=== PATIENT | female | born 1990 | race American Indian/Alaskan Native ===

== ENCOUNTER 2019-01-31 07:28 | Day surgery (SDC) | payer OTHER ==
[~2019-01-31] VITALS: Ht 162.6 cm; Wt 81.7 kg
--- NOTE | ~2019-01-31 | OR ---
[address] [address] [place] DATE OF OPERATION: 01/31/2019 SURGEON: Venkata Mota DO PREOPERATIVE DIAGNOSES: 1. Missed approximately 7 weeks. 2. Type 2 diabetes, poorly controlled. POSTOPERATIVE DIAGNOSES: 1. Missed approximately 7 weeks. 2. Type 2 diabetes, poorly controlled. PROCEDURE PERFORMED: Suction D and C. ASSISTANT FOREMAN: None. ANESTHESIA: MAC. ESTIMATED BLOOD LOSS: 250 mL. SPECIMEN: Products of conception. FINDINGS: Normal external genitalia with normal clitoris, urethral meatus, bilateral Sylvia's, and Bartholin glands. The cervix was slightly open, but no products of conception were noted proceeding from the cervical os. At the time of D and C, products of conception noted and suction tubing. The patient did have approximately 200 mL of blood loss with some initial uterine atony that improved with Cytotec rectally, methargen, tranexamic acid, and Pitocin. Hemostatic at the end the procedure and the uterus was involuted and firm. COMPLICATIONS: None. INDICATION: PATIENT NAME: SISSY ESCOBAR OPERATIVE REPORT DATE OF : 86 REPORT #: [id number] PHYSICIAN: VENKATA MOTA DO PCP: ANJELICA ALBERTO MD REPORT IS CONFIDENTIAL AND NOT TO BE RELEASED WITHOUT AUTHORIZATION [address] [address] [place] Ms. Escobar is a pleasant 28-year-old G5, P3-0-2-3, who presented to clinic with symptoms of missed AB. Quants decreased from 26 to approximately 23,000 and multiple ultrasounds showed an empty gestational sac with no viable intrauterine products. Past medical history is complicated by type 2 diabetes that is poorly controlled. Despite being on metformin and Lantus, her recent A1c was over 11. Dr. Ojeda from clinic called in and coordinated with me to treat this patient. I reviewed options for management of missed AB including expectant management, medical management, and surgical management. The patient strongly wishes to proceed with suction D and C. Risks, benefits, and alternatives were discussed in detail with the patient. The patient understands and wished to proceed with the procedure. DESCRIPTION OF PROCEDURE: The patient was taken to the operating room. A time-out was performed to confirm correct patient and correct procedure. MAC anesthesia was adequately established. The patient was then prepped and draped in dorsal lithotomy position with feet in Yellofin stirrups. ICPs were on and running, and the patient received doxycycline 200 mg preoperatively. A weighted speculum was placed in the vagina and the anterior lip of the cervix was grasped with an Allis clamp. The cervix was noted to be somewhat open and the cervix was easily and gently dilated to a #11 using the guard dilators. A #11 curved curette was then selected and advanced very gently to the fundus. Once fundal position was confirmed, the suction machine was activated and suction was noted to increase into the green zone. The curette was slowly withdrawn while twisting in order to perform a circumferential curettage. Products of conception and blood were noted in the suction tubing. Several passes were made with the suction curette in similar manner and the patient was noted to have some increased bleeding. The patient was then treated with 20 units of Pitocin and mixed in her IV bag and bolused. Sharp curettage was then performed in a very gentle manner where the largest curette that could pass through the cervix was selected and the intrauterine cavity gently probed to ensure that no remaining products of conception were noted. One final pass with suction curettage was performed with no additional products noted. The patient was then given a 1000 mcg of Cytotec per rectum and one dose of methargen IM. The bleeding was much improved at that point and the patient was also given one dose of tranexamic acid 1 g IV. The uterus was then firm, involuted, and hemostatic. The patient was then taken to PACU in good and stable condition, and products of conception were sent to Pathology for further evaluation. Sponge, needle, and instrument count were correct x2 at the end the procedure. Venkata Mota DO PATIENT NAME: SISSY ESCOBAR OPERATIVE REPORT DATE OF : 86 REPORT #: [id number] PHYSICIAN: VENKATA MOTA DO PCP: ANJELICA ALBERTO MD REPORT IS CONFIDENTIAL AND NOT TO BE RELEASED WITHOUT AUTHORIZATION [facility] [address] [facility] [place] [address] [place] SHAGGY/MODL /[id number] Copies: ~ PATIENT NAME: SISSY ESCOBAR OPERATIVE REPORT DATE OF : 86 REPORT #: [id number] PHYSICIAN: VENKATA MOTA DO PCP: ANJELICA ALBERTO MD REPORT IS CONFIDENTIAL AND NOT TO BE RELEASED WITHOUT AUTHORIZATION
[~2019-01-31 07:28] MED LIST: ACYCLOVIR800 MG PO; MACROBID 100 M100 MG PO; PYRIDIUM200 MG PO; TRAMADOL HCL50 MG PO
[2019-01-31] MEDS ORDERED: IBU800 MG PO (14:03)
[2019-01-31] MEDS ORDERED: NORCO 5-325 TA1 EACH PO (14:04)
== END 2019-01-31 14:40 | disposition home or self-care (01) ==
LOC: MS 07:28 → DS 07:28 → MS 07:30 → DS 14:40
PROVIDERS: Obstetrics & Gynecology
PROC: 10D17ZZ Extraction of Products of Conception, Retained, Via Natural or Artificial Opening (ICD-10-PCS; principal; 2019-01-31 09:00)
DX: O02.1 Missed abortion (principal); E11.649 Type 2 diabetes mellitus with hypoglycemia without coma; D64.9 Anemia, unspecified; K21.9 Gastro-esophageal reflux disease without esophagitis; Z88.0 Allergy status to penicillin; Z88.8 Allergy status to other drugs, medicaments and biological substances; Z79.899 Other long term (current) drug therapy; Z79.84 Long term (current) use of oral hypoglycemic drugs
CPT/HCPCS: 00952; 80053; 82247; 82465; 83615; 84100; 84478; 84550; 85027; 86850; 86900; 86901; 88305; J0131; J1170; J1885; J2210; J2250; J2405; J2550; J2590; J2704; J3010

== ENCOUNTER 2020-03-16 17:29 | Emergency (ER) | payer OTHER ==
[~2020-03-16] VITALS: Ht 162.6 cm; Wt 81.6 kg
[~2020-03-16 17:29] MED LIST changes: +IBU800 MG PO; +NORCO 5-325 TA1 EACH PO
[2020-03-16] MEDS ORDERED: FORTAMET500 MG (18:08)
[2020-03-16] MEDS ORDERED: LANTUS SOL100 UNIT/1 (18:09)
== END 2020-03-16 18:50 | disposition home or self-care (01) ==
LOC: ED 17:29
DX: S39.012A Strain of muscle, fascia and tendon of lower back, initial encounter (principal); M62.830 Muscle spasm of back; E11.9 Type 2 diabetes mellitus without complications; Z88.0 Allergy status to penicillin; Z79.899 Other long term (current) drug therapy; V89.2XXA Person injured in unspecified motor-vehicle accident, traffic, initial encounter
CPT/HCPCS: 99283; A9270